=== PATIENT | female | born 1945 | race Caucasian/White ===

== ENCOUNTER → 2017-04-25 | Day surgery (SDC) | payer OTHER, MEDICARE ==
[~2017-04-25] MED LIST: LIDOCAINE 1% 2 ML INJ ID PRN; LR 1,000 ML IV ONE; NALOXONE HCL 0.4 MG/ML INJ IVP PRN; PROPOFOL/EMULSION 500 MG/50 ML BOTTLE IV ONE; fentaNYL 100 MCG/2 ML INJ IVP PRN
[2017-04-25 08:02] VITALS: PULSE 72
--- NOTE | 2017-04-25 09:11 | PDANEPAE ---
ANE History of Present Illness here for colonoscopy ANE Past Medical History - Cardiovascular History Hx Hypertension: No Hx Arrhythmias: No Hx Chest Pain: No Hx Coronary Artery / Peripheral Vascular Disease: No Hx CHF / Valvular Disease: No Hx Palpitations: No - Pulmonary History Hx COPD: No Hx Asthma/Reactive Airway Disease: No Hx Recent Upper Respiratory Infection: No Hx Oxygen in Use at Home: No Hx Sleep Apnea: No Sleep Apnea Screening Result - Last Documented: Negative Pulmonary History Comment: sl congestion w/ URI currently. - Neurologic History Hx Cerebrovascular Accident: No Hx Seizures: No Hx Dementia: No - Endocrine History Hx Diabetes: No - Renal History Hx Renal Disorders: No - Liver History Hx Hepatic Disorders: No - Neurological & Psychiatric Hx Hx Neurological and Psychiatric Disorders: Yes Neurological / Psychiatric History Comment: depression -on Rx since divorce. - Cancer History Hx Cancer: Yes Cancer History Comment: R breast - Congenital Disorder History Hx Congenital Disorders: No - GI History Hx Gastrointestinal Disorders: Yes Gastrointestinal History Comment: Hx of polyps - Other Health History Other Health History: rash on R side of nose-. Hx of Active herpes virus -leg. Gabapentin/ trazodone for sleep. - Chronic Pain History Chronic Pain: No - Surgical History Prior Surgeries: C sections x2. sx to unblock F tubes. R Mastectomy w/ Tram Flap reconstruction ANE Review of Systems Review of Systems: - Exercise capacity METS (RN): 4 METS ANE Patient History - Allergies Allergies/Adverse Reactions: erythromycin base Allergy (Verified 04/25/17 08:04) Vomiting - Home Medications Home medications: home medication list seen and reviewed Home Medications: Estring 04/22/17 [Last Taken 02/06/17] GABAPENTIN 04/22/17 [Last Taken 04/22/17] Glucosamine Sulfate 04/22/17 [Last Taken 04/22/17] IBUPROFEN 04/22/17 [Last Taken 04/22/17] Wellbutrin Sr 04/22/17 [Last Taken 04/24/17 09:00] traZODone 04/22/17 [Last Taken 04/23/17] - NPO status NPO Status: no food or drink >8 hours NPO Since - Liquids (Date): 04/24/17 NPO Since - Liquids (Time): 21:00 NPO Since - Solids (Date): 04/24/17 NPO Since - Solids (Time): 09:00 - Anes Hx Anes Hx: no prior problems - Smoking Hx Smoking Status: Former smoker ANE Labs/Vital Signs - Vital Signs Blood Pressure: 157/95 Heart Rate: 72 Respiratory Rate: 16 O2 Sat (%): 96 Height: 149.86 cm Weight: 51.256 kg ANE Physical Exam - Airway Neck exam: FROM Mallampati Score: Class 1 - Pulmonary Pulmonary: no respiratory distress - Cardiovascular Cardiovascular: regular rate and rhythym - ASA Status ASA Status: II ANE Anesthesia Plan Anesthesia Plan: GA with mask
--- NOTE | 2017-04-25 09:36 | GIREPORT ---
[facility] - Endoscopy Department Patient Name: Maria Elena Crespo Procedure Date: 04/25/2017 9:01 AM Patient Type: Outpatient Attending MD/ ER Physician: Xander Benavides MD Procedure: Colonoscopy Indications: Follow-up for history of adenomatous polyps in the colon Providers: Xander Benavides MD Medicines: General Anesthesia Complications: No immediate complications. Description of Procedure: After obtaining informed consent, the scope was passed under direct vis ion. Throughout the procedure, the patient's blood pressure, pulse, and oxyg en saturations were monitored continuously. The Colonoscope with irrigatio n channel was introduced through the anus and advanced to the transverse colon. The colonoscopy was technically difficult and complex due to inadequate bowel prep. The patient tolerated the procedure well. The qu ality of the bowel preparation was inadequate. Findings: A large amount of semi-solid solid stool was found in the sigmoid colon , in the descending colon and in the transverse colon, precluding visualizat ion. Estimated Blood Loss: Estimated blood loss: none. Post Op Diagnosis: - Preparation of the colon was inadequate. - Stool in the sigmoid colon, in the descending colon and in the transv erse colon. - No specimens collected. Recommendation: - Discharge patient to home (with escort). - Clear liquid diet today. - Colyte 4 L prep today. - Repeat colonoscopy tomorrow because the bowel preparation was poor. Attending Participation: I personally performed the entire procedure. Xander Benavides MD Xander Benavides MD 04/25/2017 9:35:50 AM This report has been signed electronicallyXander Benavides MD Number of Addenda: 0 Note Initiated On: 04/25/2017 9:01 AM [email or web address]}
[2017-04-25 09:49] VITALS: TEMP 98.6
[2017-04-25 10:49] VITALS: BP 143/83; RESP 18; O2SAT 96
== END | disposition home or self-care (01) ==
LOC: FSGY 07:22
PROVIDERS: ATTEND Internal Medicine Gastroenterology
PROC: 0DJD8ZZ Inspection of Lower Intestinal Tract, Via Natural or Artificial Opening Endoscopic (ICD-10-PCS; principal; 2017-04-25 09:00)
DX: Z86.010 Personal history of colon polyps (principal); Z91.19 Patient's noncompliance with other medical treatment and regimen; K59.9 Functional intestinal disorder, unspecified
CPT/HCPCS: J2704

== ENCOUNTER 2017-04-26 08:41 | Day surgery (SDC) | payer OTHER, MEDICARE ==
--- NOTE | 2017-04-25 12:30 | POSTANESTH ---
Post Anesthetic Evaluation Cardiovascular Status: Normal, Stable Respiratory Status: Normal, Stable Level of Consciousness/Mental Status: Can Participate in Eval Pain Control: Adequate, Prn Tx Ordered Nausea/Vomiting Control: Adequate, Prn Tx Ordered Complications Possibly Related to Anesthesia: None Noted
[2017-04-26] MEDS ORDERED: LR 1,000 ML IV ONE (09:11)
--- NOTE | 2017-04-26 10:17 | PDANEPAE ---
ANE History of Present Illness 71 yo for colonoscopy ANE Past Medical History - Cardiovascular History Hx Hypertension: No Hx Arrhythmias: No Hx Chest Pain: No Hx Coronary Artery / Peripheral Vascular Disease: No Hx CHF / Valvular Disease: No Hx Palpitations: No - Pulmonary History Hx COPD: No Hx Asthma/Reactive Airway Disease: No Hx Recent Upper Respiratory Infection: No Hx Oxygen in Use at Home: No Hx Sleep Apnea: No Pulmonary History Comment: sl congestion w/ URI currently. - Neurologic History Hx Cerebrovascular Accident: No Hx Seizures: No Hx Dementia: No - Endocrine History Hx Diabetes: No - Renal History Hx Renal Disorders: No - Liver History Hx Hepatic Disorders: No - Neurological & Psychiatric Hx Hx Neurological and Psychiatric Disorders: Yes Neurological / Psychiatric History Comment: depression -on Rx since divorce. - Cancer History Hx Cancer: Yes Cancer History Comment: R breast - Congenital Disorder History Hx Congenital Disorders: No - GI History Hx Gastrointestinal Disorders: Yes Gastrointestinal History Comment: Hx of polyps - Other Health History Other Health History: rash on R side of nose-. Hx of Active herpes virus -leg. Gabapentin/ trazodone for sleep. - Chronic Pain History Chronic Pain: No - Surgical History Prior Surgeries: C sections x2. sx to unblock F tubes. R Mastectomy w/ Tram Flap reconstruction ANE Review of Systems Review of Systems: - Exercise capacity METS (RN): 4 METS ANE Patient History - Allergies Allergies/Adverse Reactions: erythromycin base Allergy (Verified 04/25/17 08:04) Vomiting - Home Medications Home medications: home medication list seen and reviewed Home Medications: Estring 04/22/17 [Last Taken 04/26/17] GABAPENTIN 04/22/17 [Last Taken 04/22/17] Glucosamine Sulfate 04/22/17 [Last Taken 04/22/17] IBUPROFEN 04/22/17 [Last Taken 04/26/17 0700] Wellbutrin Sr 04/22/17 [Last Taken 04/26/17 0700] traZODone 04/22/17 [Last Taken 04/26/17 0800] - NPO status NPO Status: no food or drink >8 hours NPO Since - Liquids (Date): 04/25/16 NPO Since - Liquids (Time): 23:00 NPO Since - Solids (Date): 04/23/16 NPO Since - Solids (Time): 21:00 - Anes Hx Anes Hx: no prior problems - Smoking Hx Smoking Status: Former smoker ANE Labs/Vital Signs - Vital Signs Blood Pressure: 160/86 Heart Rate: 65 Respiratory Rate: 18 O2 Sat (%): 98 Height: 4 ft 11 in Weight: 50 kg ANE Physical Exam - Airway Neck exam: FROM Mallampati Score: Class 2 Mouth exam: normal dental/mouth exam - Pulmonary Pulmonary: no respiratory distress - Cardiovascular Cardiovascular: regular rate and rhythym - ASA Status ASA Status: II ANE Anesthesia Plan Anesthesia Plan: GA with mask
[2017-04-26] MEDS ORDERED: PROPOFOL/EMULSION 500 MG/50 ML BOTTLE IV ONE (10:19)
--- NOTE | 2017-04-26 10:26 | PDGENHP ---
History & Physical Chief Complaint: polyps History of Present Illness: 71 year old female with a history of polyps presents for surveillance colonoscopy. Pertinent Past, Social, Family History: SoHx: Relevant Physical Exam: HEENT: anicterc. CV: RRR +s1s2. Lungs: CTAB. Abd: soft, nt, + bs. Ext: No c/c/e Cardiorespiratory Assessment: ASA 2
[2017-04-26] MEDS ORDERED: NALOXONE HCL 0.4 MG/ML INJ IVP PRN (10:32)
[2017-04-26] MEDS ORDERED: fentaNYL 100 MCG/2 ML INJ IVP PRN (10:32)
[2017-04-26] MEDS ORDERED: ONDANSETRON 4 MG/2 ML VIAL IVP PRN (10:32)
[2017-04-26] MEDS ORDERED: PROPOFOL 200 MG/20 ML VIAL ONE (10:45)
--- NOTE | 2017-04-26 10:57 | GIREPORT ---
[facility] Surgical Services - Endoscopy Department Patient Name: Maria Elena Crespo Procedure Date: 04/26/2017 6:31 AM Patient Type: Outpatient Attending MD/ ER Physician: Bhavesh Looney MD Procedure: Colonoscopy Indications: High risk colon cancer surveillance: Personal history of colonic polyps Patient Profile: 71 year old female with a history of polyps presents for surveillance colonoscopy. Providers: Bhavesh Looney MD Medicines: Monitored Anesthesia Care Complications: No immediate complications. Estimated blood loss: None. Description of Procedure: After obtaining informed consent, the scope was passed under direct vis ion. Throughout the procedure, the patient's blood pressure, pulse, and oxyg en saturations were monitored continuously. The Colonoscope was introduced through the anus and advanced to the cecum, identified by appendiceal orifice and ileocecal valve. The colonoscopy was performed with difficu lty due to significant looping. The patient tolerated the procedure well. T he quality of the bowel preparation was good. The ileocecal valve, appendi ceal orifice, and rectum were photographed. Findings: The perianal and digital rectal examinations were normal. Pertinent negatives include no palpable rectal lesions. A few diverticula were found in the sigmoid colon. Estimated Blood Loss: Estimated blood loss: none. Post Op Diagnosis: - Diverticulosis in the sigmoid colon. - No specimens collected. Recommendation: - Discharge patient to home (with escort). - Resume previous diet. - Continue present medications. - Repeat colonoscopy in 5 years for surveillance. - Thank you for allowing me to participate in the care of your patient. Attending Participation: I personally performed the entire procedure. Bhavesh Looney MD Bhavesh Looney MD 04/26/2017 10:56:36 AM This report has been signed electronicallyBhavesh Looney MD Number of Addenda: 0 Note Initiated On: 04/26/2017 6:31 AM Total Procedure Duration Time 0 hours 24 minutes 12 seconds [email or web address]
[2017-04-26 11:56] VITALS: PULSE 61; RESP 16
[2017-04-26 12:27] VITALS: BP 134/96; O2SAT 98
[2017-04-26 12:29] VITALS: TEMP 97.5
== END 2017-04-26 12:20 | disposition home or self-care (01) ==
LOC: FSGY 08:41
PROVIDERS: ATTEND Internal Medicine Gastroenterology
PROC: 0DJD8ZZ Inspection of Lower Intestinal Tract, Via Natural or Artificial Opening Endoscopic (ICD-10-PCS; principal; 2017-04-26 10:00)
DX: Z12.11 Encounter for screening for malignant neoplasm of colon (principal); K57.32 Diverticulitis of large intestine without perforation or abscess without bleeding; Z86.010 Personal history of colon polyps; F32.9 Major depressive disorder, single episode, unspecified; J06.9 Acute upper respiratory infection, unspecified; Z87.891 Personal history of nicotine dependence
CPT/HCPCS: J2704